=== PATIENT | male | born 1950 | race Caucasian/White ===

== ENCOUNTER 2016-12-23 20:30 | Emergency (ER) | payer MEDICARE, OTHER ==
[~2016-12-23 20:30] MED LIST: ACETAMINOPHEN500 M1 PO; ASPIRIN81 MG PO; CATAPRES0.1 MG PO; DEPAKOTE500 MG PO; FERROUS SULFAT325 MG PO; FLOMAX0.4 MG PO; GLUCOPHAGE500 MG PO; IBUPROFEN400 MG PO; LACTINEX1 EACH PO; LEVAQUIN750 MG PO; LIPITOR 10MG TA10 MG PO; LIPITOR10 MG PO; MIRALAX17 GM PO; NIACIN500 MG PO; NORCO 5-325 TA1 EACH PO; PREDNISONE10 MG PO; PROTONIX 40MG T40 MG PO; PROTONIX40 MG PO; ROBITUSSIN100 MG/5 M PO; SALINE NASAL M126 ML; SENNA S TABLET1 EACH PO; SENNA-S TABLET1 EACH PO; SEROQUEL200 MG PO; SEROQUEL300 MG PO; SOAP SUD ENEMA PR; SYNTHROID50 MCG PO; ZOFRAN4 MG PO; ZYPREXA10 MG PO
[2016-12-23 21:26] LABS: ALBUMIN 4.2 g/dL (3.4-4.8); BILIRUBIN - TOTAL 0.4 mg/dL (0.1-1.0); CREATININE 0.9 mg/dL (0.7-1.2); GLOBULIN (CALCULATION) 2.7 g/dL (2.2-4.2); POTASSIUM 4.2 mmol/L (3.5-5.1); TOTAL PROTEIN 6.9 g/dL (6.4-8.3)
[2016-12-23 21:30] LABS: BILIRUBIN NEGATIVE (NEGATIVE); BLOOD NEGATIVE Ery/uL (NEGATIVE); CLARITY CLEAR (CLEAR); COLOR YELLOW (YELLOW); GLUCOSE (U) NORMAL (NORMAL); KETONE (U) TRACE mg/dL (NEGATIVE); LEUKOCYTES NEGATIVE Leu/uL (NEGATIVE); NITRITE NEGATIVE (NEGATIVE); PROTEIN NEGATIVE (NEGATIVE); SPECIFIC GRAVITY 1.025 (1.001-1.030)
[2016-12-23 21:43] LABS: BASOPHIL 0.1 % (0-2); EOSINOPHIL 0.7 % (0-7); HCT 43.9 % (42.0-52.0); LYMPHOCYTE 24.7 % (15-48); MCH 33.9 pg (25.0-31.0); MCHC 34.2 g/dL (32.0-36.0); MCV 99.3 fL (78.0-100.0); MONOCYTE 19.6 % (0-12); MPV 11.2 fL (6.0-9.5); NEUTROPHIL 54.9 % (41-80); PLT 182 K/uL (150-400); RBC 4.42 M/uL (4.70-6.00); WBC 9.2 K/uL (4.0-10.5)
== END 2016-12-23 23:57 | disposition home or self-care (01) ==
LOC: FER 20:30
PROVIDERS: Emergency Medicine
DX: K59.00 Constipation, unspecified (principal); K56.7 Ileus, unspecified; E11.9 Type 2 diabetes mellitus without complications; G40.909 Epilepsy, unspecified, not intractable, without status epilepticus; F20.9 Schizophrenia, unspecified; E78.5 Hyperlipidemia, unspecified
CPT/HCPCS: 36415; 80053; 81003; 83690; 85025; 93005

== ENCOUNTER 2021-05-04 08:05 | Emergency (ER) | payer MEDICARE, OTHER ==
[~2021-05-04 08:05] MED LIST changes: +ASPIRIN EC81 M1 PO; +CITRATE OF MAG296 ML PO; +DEPAKOTE250 MG PO; +JANUVIA25 MG XX; +JANUVIA50 MG PO; +METFORMIN HCL500 MG PO; +SEROQUEL 100MG100 MG PO; +THICK-IT1 EACH PO; +ZYPREXA 5MG TABL5 MG PO; +[UNRECOGNIZED DRUG - OTHER] XX; +[UNRECOGNIZED DRUG - SUPPLY]
[2021-05-04] MEDS ORDERED: BACTRIM DS TAB1 EACH PO (09:09)
== END 2021-05-04 10:45 | disposition home or self-care (01) ==
LOC: FER 08:05
DX: L03.116 Cellulitis of left lower limb (principal); I10 Essential (primary) hypertension; E11.9 Type 2 diabetes mellitus without complications; F79 Unspecified intellectual disabilities; Z79.82 Long term (current) use of aspirin; Z79.899 Other long term (current) drug therapy; Z79.84 Long term (current) use of oral hypoglycemic drugs
CPT/HCPCS: 99283; J0696

== ENCOUNTER 2021-07-12 14:34 | Emergency (ER) | payer MEDICARE, OTHER ==
[~2021-07-12 14:34] MED LIST changes: +BACTRIM DS TAB1 EACH PO
[2021-07-12 15:42] LABS: BASOPHIL 0.2 % (0-2); EOSINOPHIL 0.3 % (0-7); HCT 35.8 % (42.0-52.0); HGB 12.4 g/dl (13.2-18.0); LYMPHOCYTE 10.8 % (15-48); MCH 34.5 pg (25.0-31.0); MCHC 34.6 g/dL (32.0-36.0); MCV 99.7 fL (78.0-100.0); MONOCYTE 11.4 % (0-12); MPV 11.8 fL (6.0-9.5); NEUTROPHIL 76.9 % (41-80); NRBC 0; PLT 158 K/uL (150-400); RBC 3.59 M/uL (4.70-6.00); RDW 12.9 % (11.5-14.0); WBC 9.9 K/uL (4.0-10.5)
[2021-07-12 15:58] LABS: ALBUMIN 2.9 g/dL (3.4-5.0); BILIRUBIN - TOTAL 0.3 mg/dL (0.2-1.0); BUN/CREAT RATIO (CALC) 12.2 RATIO; CREATININE 0.9 mg/dL (0.67-1.17); GLOBULIN (CALCULATION) 3.7 g/dL; POTASSIUM 3.9 mmol/L (3.5-5.1); TOTAL PROTEIN 6.6 g/dL (6.4-8.2)
[2021-07-12 16:04] LABS: LACTIC ACID 1.5 mmol/L (0.4-1.9)
[2021-07-12 16:18] LABS: BILIRUBIN NEGATIVE (NEGATIVE); BLOOD NEGATIVE Ery/uL (NEGATIVE); CLARITY HAZY (CLEAR); COLOR YELLOW (YELLOW); GLUCOSE (U) NORMAL (NORMAL); LEUKOCYTES NEGATIVE Leu/uL (NEGATIVE); NITRITE NEGATIVE (NEGATIVE); PROTEIN NEGATIVE (NEGATIVE)
[2021-07-12 16:52] LABS: CORONAVIRUS 2019 SARS-COV-2 NEGATIVE (NEGATIVE); INFLUENZA A NAA NEGATIVE (NEGATIVE)
[2021-07-12] MEDS ORDERED: LEVAQUIN500 MG PO (17:19)
== END 2021-07-12 19:39 | disposition home or self-care (01) ==
LOC: FER 14:34
PROVIDERS: Internal Medicine
DX: J18.9 Pneumonia, unspecified organism (principal); K59.00 Constipation, unspecified; E11.9 Type 2 diabetes mellitus without complications; F20.9 Schizophrenia, unspecified; Z20.822 Contact with and (suspected) exposure to COVID-19
CPT/HCPCS: 36415; 36600; 71045; 80053; 81003; 82803; 83605; 84145; 85025; 93005; J1956; U0002

== ENCOUNTER 2022-01-09 09:44 | Emergency (ER) | payer MEDICARE, OTHER ==
[~2022-01-09 09:44] MED LIST changes: +LEVAQUIN500 MG PO
== END 2022-01-09 14:47 | disposition home or self-care (01) ==
LOC: FER 09:44
DX: M79.644 Pain in right finger(s) (principal); M54.50 Low back pain, unspecified; K62.89 Other specified diseases of anus and rectum; I50.9 Heart failure, unspecified; E11.9 Type 2 diabetes mellitus without complications; F17.210 Nicotine dependence, cigarettes, uncomplicated; Z79.82 Long term (current) use of aspirin; Z79.899 Other long term (current) drug therapy; W19.XXXA Unspecified fall, initial encounter; Y92.129 Unspecified place in nursing home as the place of occurrence of the external cause
CPT/HCPCS: 70450; 70486; 72125; 72128; 72131; 73120; 73522

== ENCOUNTER 2022-06-05 09:36 | Emergency (ER) | payer MEDICARE, OTHER ==
[2022-06-05 10:27] LABS: BASOPHIL 0.6 % (0-2); EOSINOPHIL 4.5 % (0-7); HCT 40.2 % (42.0-52.0); HGB 13.1 g/dl (13.2-18.0); LYMPHOCYTE 29.6 % (15-48); MCHC 32.6 g/dL (32.0-36.0); MCV 104.4 fL (78.0-100.0); MONOCYTE 12.5 % (0-12); MPV 11.3 fL (6.0-9.5); NRBC 0; PLT 137 K/uL (150-400); RBC 3.85 M/uL (4.70-6.00); RDW 13.8 % (11.5-14.0); WBC 7.1 K/uL (4.0-10.5)
[2022-06-05 10:55] LABS: ALBUMIN 3.4 g/dL (3.4-5.0); BILIRUBIN - TOTAL 0.2 mg/dL (0.2-1.0); BUN/CREAT RATIO (CALC) 22.4 RATIO; CREATININE 1.16 mg/dL (0.67-1.17); POTASSIUM 4.3 mmol/L (3.5-5.1); TOTAL PROTEIN 7.4 g/dL (6.4-8.2)
== END 2022-06-05 14:57 ==
LOC: FER 09:36
PROVIDERS: Emergency Medicine
DX: R41.82 Altered mental status, unspecified (principal); J98.11 Atelectasis; F03.90 Unspecified dementia, unspecified severity, without behavioral disturbance, psychotic disturbance, mood disturbance, and anxiety; F20.9 Schizophrenia, unspecified
CPT/HCPCS: 36415; 71045; 80053; 85025

== ENCOUNTER 2022-06-10 16:07 | Emergency (ER) | payer MEDICARE, OTHER ==
[2022-06-10 17:33] LABS: BUN/CREAT RATIO (CALC) 19.8 RATIO; CREATININE 1.11 mg/dL (0.67-1.17); POTASSIUM 4.1 mmol/L (3.5-5.1)
[2022-06-10 17:48] LABS: BASOPHIL 0.4 % (0-2); EOSINOPHIL 2.5 % (0-7); HCT 39.4 % (42.0-52.0); HGB 13.1 g/dl (13.2-18.0); LYMPHOCYTE 26.4 % (15-48); MCH 34.3 pg (25.0-31.0); MCHC 33.2 g/dL (32.0-36.0); MCV 103.1 fL (78.0-100.0); MPV 12.7 fL (6.0-9.5); NEUTROPHIL 60.1 % (41-80); NRBC 0; PLT 162 K/uL (150-400); RBC 3.82 M/uL (4.70-6.00); RDW 13.7 % (11.5-14.0); WBC 6.7 K/uL (4.0-10.5)
[2022-06-10 18:33] LABS: BILIRUBIN NEGATIVE (NEGATIVE); BLOOD NEGATIVE Ery/uL (NEGATIVE); CLARITY CLEAR (CLEAR); COLOR YELLOW (YELLOW); GLUCOSE (U) NORMAL (NORMAL); LEUKOCYTES NEGATIVE Leu/uL (NEGATIVE); NITRITE NEGATIVE (NEGATIVE); PROTEIN NEGATIVE (NEGATIVE); SPECIFIC GRAVITY 1.025 (1.001-1.030); UROBILINOGEN 0.2 mg/dL (0.2-1.0)
== END 2022-06-10 20:25 | disposition home or self-care (01) ==
LOC: FER 16:07
PROVIDERS: Emergency Medicine
DX: S01.01XA Laceration without foreign body of scalp, initial encounter (principal); E11.9 Type 2 diabetes mellitus without complications; I10 Essential (primary) hypertension; W19.XXXA Unspecified fall, initial encounter; Y92.129 Unspecified place in nursing home as the place of occurrence of the external cause
CPT/HCPCS: 36415; 70450; 71045; 72125; 72170; 80048; 81003; 84484; 85025; 93005